=== PATIENT | male | born 1940 | race Caucasian/White ===

== ENCOUNTER 2019-10-30 07:21 | Outpatient (CLI) | payer MEDICARE ==
--- NOTE | 2019-10-30 09:27 | PET ---
EXAM: PET/CT HISTORY: Solitary pulmonary nodule TECHNIQUE: PET scanning with CT attenuation correction was performed from the base of the brain to the proximal thighs following the intravenous administration of 10.6 millicuries [id number]. COMPARISON: None. CORRELATION: CT pulmonary angiogram of 10/25/2019 FINDINGS: There is a 1.6 cm hypermetabolic solid pulmonary nodule in the superior segment of the right lower lo be with an SUV of 4.0 No onesimo hypermetabolism is seen in the neck, mediastinum, hilar regions, axillary, abdomen or pelvis . No hypermetabolic liver, adrenal or skeletal lesions are seen. There is physiologic activity in the GI and tracts and the visualized portions of the brain. The CT scan used for attenuation correction demonstrates no evidence of pleural effusions or ascites. There is bilateral polycystic kidney disease and cholelithiasis. IMPRESSION: Findings a suspicious for right lung malignancy without evidence of metastatic disease
== END 2019-10-30 07:22 | disposition home or self-care (01) ==
LOC: PET 07:21
PROVIDERS: ATTEND Internal Medicine Pulmonary Disease
DX: R91.1 Solitary pulmonary nodule (principal)
CPT/HCPCS: 78815; A9552

== ENCOUNTER 2019-11-11 15:10 | Outpatient (CLI) | payer MEDICARE ==
[2019-11-11 17:49] LABS: #Basophils 0.1 thou/uL (0.0-0.2); #Eosinphils 0.3 thou/uL (0.0-0.7); #Lymphocytes 1.4 thou/uL (1.20-3.40); #Monocytes 0.4 thou/uL (0.11-0.59); #Neutrophils 3.2 thou/uL (1.40-6.50); %Basophils 1.2 % (0.0-1.0); %Lymphocytes 25.9 % (21.0-51.0); %Monocytes 7.8 % (0.0-10.0); %Neutrophils 60.2 % (42.0-75.0); Mean Corpuscular HGB CONC 33.9 g/dL (32.0-36.0); Mean Corpuscular Hemoglobin 31.1 pg (27.0-31.0); Mean Corpuscular Volume 91.8 fL (78.0-98.0); Mean Platelet Volume 7.5 fL (7.4-10.4); Platelet Count 206 thou/uL (130-400); RBC Distribution Width 13.8 % (11.5-14.5); Red Blood Cell (RBC) Count 4.19 mill/uL (4.70-6.10); White Blood Cell (WBC) Count 5.3 thou/uL (4.8-10.8)
[2019-11-11 17:58] LABS: Anion Gap 13 mmol/L (10-20); BUN (Urea Nitrogen) 21 mg/dL (8.4-25.7); Calc. Creatinine Clearance 0 mL/min (70-130); Calcium 8.9 mg/dL (7.8-10.44); Carbon Dioxide 27 mmol/L (23-31); Chloride 104 mmol/L (98-107); Estimated GFR-MDRD 36; Glucose 121 mg/dL (83-110); Potassium 4.7 mmol/L (3.5-5.1); Sodium 139 mmol/L (136-145)
[2019-11-12 11:56] LABS: SARS-CoV-2 MS2 Positive; SARS-CoV-2 N Gene Negative; SARS-CoV-2 S Gene Negative; SARS-CoV-2 by NAA Not Detected (NotDetected); SARS-CoV-2 orf1ab Negative
== END 2019-11-11 15:11 | disposition home or self-care (01) ==
LOC: LABBT 15:10
PROVIDERS: ATTEND Thoracic Surgery (Cardiothoracic Vascular Surgery)
DX: Z01.812 Encounter for preprocedural laboratory examination (principal); Z20.828 Contact with and (suspected) exposure to other viral communicable diseases; R91.8 Other nonspecific abnormal finding of lung field
CPT/HCPCS: 80048; 85025; 86850; 86900; 86901; U0003; 87635

== ENCOUNTER 2019-11-11 15:30 | Inpatient (IN) | payer MEDICARE, OTHER ==
[2019-11-16] MEDS ORDERED: Fentanyl 100 MCG/2 ML VIAL ONE ×2 (06:34→10:52)
[2019-11-16] MEDS ORDERED: Midazolam HCl 2 mg/2 ml Vial ONE (06:34)
[2019-11-16] MEDS ORDERED: Hydrocerin (Eucerin) Cream 120 gm Jar TOP PRN (08:00)
[2019-11-16] MEDS ORDERED: Promethazine HCl 25 MG SUPP PR PRN (08:00)
[2019-11-16] MEDS ORDERED: diphenhydrAMINE 50 MG/ML VIAL IVP PRN (08:00)
[2019-11-16] MEDS ORDERED: Zolpidem Tartrate 5 MG TAB PO PRN (08:00)
[2019-11-16] MEDS ORDERED: traMADol HCl 50 MG TAB PO PRN ×2 (08:00)
[2019-11-16] MEDS ORDERED: Bupivacaine 0.25% 10 ML VIAL EPIDURAL PRN (08:00)
[2019-11-16] MEDS ORDERED: Promethazine HCl 25 MG/ML VIAL IM PRN ×2 (08:00→10:54)
[2019-11-16] MEDS ORDERED: Naloxone HCl 0.4 mg/ml Vial IV PRN (08:00)
[2019-11-16] MEDS ORDERED: diphenhydrAMINE 50 MG/ML VIAL IM PRN (08:00)
[2019-11-16] MEDS ORDERED: HYDROcodone/Acetaminophen 5/325 mg Tablet PO PRN (08:00)
[2019-11-16] MEDS ORDERED: Naloxone HCl 0.4 mg/ml Vial IVP PRN (08:00)
[2019-11-16] MEDS ORDERED: Ondansetron HCl/PF 4 MG/2 ML Vial IVP PRN (10:20)
[2019-11-16] MEDS ORDERED: PHENYLEPHRINE-NS 100 MCG/ML 10 ML SYRINGE ONE (10:41)
[2019-11-16] MEDS ORDERED: PROPOFOL 200 MG/20 ML VIAL ONE (10:41)
[2019-11-16] MEDS ORDERED: Rocuronium Bromide 10 MG/ML (10ML VIAL) ONE (10:41)
[2019-11-16] MEDS ORDERED: Lidocaine 1% PF 5 ML VIAL ONE (10:41)
[2019-11-16] MEDS ORDERED: Ketorolac Tromethamine 30 MG/ML VIAL ONE (10:41)
[2019-11-16] MEDS ORDERED: EPHEDRINE 25 MG/5 ML SYRINGE ONE (10:41)
[2019-11-16] MEDS ORDERED: Ondansetron PF 4 MG/2 ML Vial ONE (10:41)
[2019-11-16] MEDS ORDERED: Dexamethasone 20 MG/5 ML VIAL ONE (10:41)
[2019-11-16] MEDS ORDERED: Glycopyrrolate 0.2 MG/ML 5 ML SYRINGE ONE ×2 (10:41)
[2019-11-16] MEDS ORDERED: Fentanyl 100 MCG/2 ML VIAL SLOW IVP PRN ×3 (10:54→12:57)
[2019-11-16] MEDS ORDERED: Phenylephrine 10 MG/NS 250 ML 250 ML IVPB PRN (10:54)
--- NOTE | 2019-11-16 12:33 | RAD ---
PORTABLE CHEST: Date: 11/16/2019 INDICATION: Post thoracotomy. FINDINGS: There is a right chest tube. There is streaky atelectasis or infiltrate in the right lower lobe. No d efinite lung markings are seen in the periphery of the right lung and a small pneumothorax cannot be excluded, although a pleural line is not definitely identified. The left lung appears clear. IMPRESSION: Right chest tube with tip overlying the right apex. Streaky atelectasis and/or infiltrate in the righ t lower lung. Tiny pneumothorax may be present, but a pleural line is not confirmed. POS: AGW
[2019-11-16] MEDS: Sodium Chloride 0.9% 1,000 ML IV SCH (15:48)
[2019-11-16] MEDS: CEFAZOLIN 2 GM in Premix Bag 1 BAG IVPB SCH ×2 (15:49→22:17)
--- NOTE | 2019-11-16 18:03 | EKG ---
Test Reason : PREOP Blood Pressure : / mmHG Vent. Rate : 068 BPM Atrial Rate : 068 BPM P-R Int : 212 ms QRS Dur : 096 ms QT Int : 430 ms P-R-T Axes : 065 -03 051 degrees QTc Int : 457 ms Sinus rhythm with 1st degree A-V block Otherwise normal ECG No previous ECGs available Confirmed by DR. Liza CÁRDENAS (3) on 11/16/2019 6:03:11 PM Referred By: MAULIK Confirmed By:DR. Liza CÁRDENAS
[2019-11-16] MEDS: diphenhydrAMINE 25 MG CAP PO PRN ×2 (18:50→22:16)
[2019-11-16] MEDS ORDERED: Bromfenac Sodium [Prolensa] 3 ML Drops TOP SCH (21:00)
[2019-11-16] MEDS: fentaNYL Citrate/PF 500 MCG, Bupivacaine 10 ML in Sodium Chloride 0.9% 80 ML EPIDURAL SCH (22:53)
[2019-11-17 04:05] LABS: #Lymphocytes 0.7 thou/uL (1.20-3.40); #Monocytes 0.6 thou/uL (0.11-0.59); #Neutrophils 7.1 thou/uL (1.40-6.50); %Basophils 0.2 % (0.0-1.0); %Eosinophils 0.1 % (0.0-10.0); %Lymphocytes 8.2 % (21.0-51.0); %Monocytes 7.3 % (0.0-10.0); %Neutrophils 84.3 % (42.0-75.0); Hemoglobin 11.2 g/dL (14.0-18.0); Mean Corpuscular HGB CONC 32.5 g/dL (32.0-36.0); Mean Corpuscular Hemoglobin 30.1 pg (27.0-31.0); Mean Corpuscular Volume 92.6 fL (78.0-98.0); Mean Platelet Volume 7.3 fL (7.4-10.4); Platelet Count 196 thou/uL (130-400); RBC Distribution Width 13.7 % (11.5-14.5); Red Blood Cell (RBC) Count 3.71 mill/uL (4.70-6.10); White Blood Cell (WBC) Count 8.5 thou/uL (4.8-10.8)
[2019-11-17 04:27] LABS: Anion Gap 13 mmol/L (10-20); BUN (Urea Nitrogen) 28 mg/dL (8.4-25.7); Calc. Creatinine Clearance 38 mL/min (70-130); Calcium 8.5 mg/dL (7.8-10.44); Carbon Dioxide 23 mmol/L (23-31); Chloride 105 mmol/L (98-107); Estimated GFR-MDRD 37; Glucose 121 mg/dL (83-110); Potassium 5.2 mmol/L (3.5-5.1); Sodium 136 mmol/L (136-145)
--- NOTE | 2019-11-17 05:15 | OP ---
DATE OF PROCEDURE: 11/16/2019 PREOPERATIVE DIAGNOSIS: Superior segment, right lower lobe mass. POSTOPERATIVE DIAGNOSIS: Superior segment, right lower lobe mass, frozen section malignancy. DESCRIPTION OF PROCEDURE: After prepping and draping in the left lateral decubitus position, the right posterior lateral muscle sparing thoracotomy was carried out. The chest was entered, and during rib spreading, a single rib fracture occurred posteriorly. The nodule was palpated and excised and frozen section returned malignancy. Based on the fact that it was not a carcinoid, even though margins were widely clear, I felt that the segmentectomy would be the best approach. The major fissure was taken down between staple loads isolating the bronchus to the superior segment after stapling the superior segment pulmonary artery. The bronchus was then stapled, and following this with inflation of the lung, the margins of the superior segment were stapled and excised. There was no air leak from the bronchus and two drains were then placed in the chest, following which, the ribs were reapproximated with iyvgfu-hy-kilea catgut sutures. Muscle layers were loosely reapproximated, and the subcutaneous tissue and skin was closed in layers. Job ID: [id number]
--- NOTE | 2019-11-17 05:47 | PRG ---
DATE OF SERVICE: 11/16/2019 SUBJECTIVE: Postop right lung segmentectomy for PET positive lung nodule. Pathology pending. OBJECTIVE: VITAL SIGNS: Pulse 53, blood pressure 100/42, saturations , respiratory rate 18. GENERAL: He denies any pain or shortness of breath. CHEST: No wheezing. No crackles. CARDIAC: Normal S1 and S2. No gallops. ABDOMEN: No masses. ASSESSMENT: Former smoker, chronic obstructive pulmonary disease, right lung nodule, status post segmentectomy. PLAN: We will continue pain relief, supportive care. Await final path. Job ID: [id number]
--- NOTE | 2019-11-17 07:01 | PDOC.GSPN ---
Surgery Progress Note: Subj - Subjective Patient reports: no new complaints Narrative: Mr. Campos is a 79 y/o male POD 1 from right thoracotomy for right lower lung resection/tumor removal. He is doing well this morning with pain well controlled and no complaints. He is was able to tolerate diet and water. Denies chest pain, shortness of breath, nausea, fevers, or chills. He is sitting comfortably in his bed and was able to use spirometer at bedside to approximately 1500ml. Epidural still in place. UOP: 328 Chest tubes: 450 at bedside IVF: NS @ 50 ml/hr Surgery Progress Note: Obj - Vital signs Vital signs: Vital Signs - Most Recent Temp Pulse Resp BP Pulse Ox 98.0 F 96 11/17/19 04:00 11/16/19 20:00 - Physical Exam General: no distress ENT: normal mucosa Cardiovascular: regular rate and rhythm, no murmur Respiratory: clear to auscultation (Auscultated a few sparce rales on right side.), normal respiratory effort, breath sounds present Abdomen: soft, non tender Psychiatric: oriented to time, oriented to person, oriented to place Wound: dressing clean,dry,intact (No gross bloody or purulent drainage. Thoracotomy incision and chest tube incisions (2) covered with gauze and tape.) Surgery Progress Note: Results - Labs Result Diagrams: 11/17/19 03:35 11/17/19 03:35 Lab results: Laboratory Results - last 12 hr 11/17/19 11/17/19 03:35 03:35 WBC 8.5 RBC 3.71 L Hgb 11.2 L Hct 34.3 L MCV 92.6 MCH 30.1 MCHC 32.5 RDW 13.7 Plt Count 196 MPV 7.3 L Neutrophils % 84.3 H Lymphocytes % 8.2 L Monocytes % 7.3 Eosinophils % 0.1 Basophils % 0.2 Neutrophils # 7.1 H Lymphocytes # 0.7 L Monocytes # 0.6 H Eosinophils # 0.0 Basophils # 0.0 Sodium 136 Potassium 5.2 H Chloride 105 Carbon Dioxide 23 Anion Gap 13 BUN 28 H Creatinine 1.78 H Estimated GFR (MDRD) 37 Glucose 121 H Calcium 8.5 Surgery Progress Note: A/P - Plan Plan: Mr. Campos is a 79 y/o male POD 1 from right thoracotomy for right lower lung resection/tumor removal who is doing well. -Encourage sitting in chair and ambulation as tolerated -Monitor pain -Monitor UOP closely. Keep mendez in for now -Will discuss chest tube removal with Dr. Duarte
[2019-11-17] MEDS: Aspirin 81 mg Enteric Coated Tablet PO SCH (07:55)
[2019-11-17] MEDS: CEFAZOLIN 2 GM in Premix Bag 1 BAG IVPB SCH (07:55)
[2019-11-17] MEDS: Atorvastatin Calcium 10 MG TAB PO SCH (07:55)
--- NOTE | 2019-11-17 08:09 | PRG ---
DATE OF SERVICE: 11/17/2019 The patient has been afebrile overnight. He has stable vital signs. Blood pressure , heart rates generally 60s, although occasionally will drop into the high 30s. He reports no pain and has had a good appetite. He did not sleep much last night, but states his snoring woke him up. Laboratory values; his hemoglobin is 11.2, his creatinine is stable at 1.78, and his potassium slightly elevated at 5.2. Chest tube is at 450 to 500 and he has no air leak. His chest x-ray looks good. His lungs are clear. His abdomen is soft. Plan to transfer the patient to the floor today, probably leave his Nguyễn in one additional day and we will start him on some Flomax since he does have nocturia times 2 to 3 at home, although he denies any urinary difficulties. Job ID: [id number]
--- NOTE | 2019-11-17 08:42 | RAD ---
PORTABLE CHEST: HISTORY: Postop thoracotomy. COMPARISON: 11/16/2019. FINDINGS: There are 2 right-side chest tubes. Probable tiny apical pneumothorax on the right. The mild linear atelectasis in the right mid lung remains. Left lung remains clear. No significant interval change . POS: AGW
[2019-11-17] MEDS ORDERED: Enoxaparin Sodium 40 MG/0.4 ML SYRINGE SC SCH (09:00)
[2019-11-17] MEDS: Sodium Chloride 0.9% 1,000 ML IV SCH (10:14)
[2019-11-17] MEDS: fentaNYL Citrate/PF 500 MCG, Bupivacaine 10 ML in Sodium Chloride 0.9% 80 ML EPIDURAL SCH ×2 (10:24→22:43)
[2019-11-17] MEDS ORDERED: Tamsulosin HCl 0.4 MG CAP PO SCH (11:00)
[2019-11-17 13:23] VITALS: BMI 23.5
[2019-11-17] MEDS: HYDROcodone/Acetaminophen 5/325 mg Tablet PO PRN ×2 (17:47→23:12)
--- NOTE | 2019-11-18 06:41 | PRG ---
DATE OF SERVICE: 11/18/2019 The patient is afebrile. Vital signs are stable. His chest tube is at 1050 suggesting about 500 mL of fluid in the past 24 hours. He has no air leak and I have stopped the suction on his chest tubes. His lungs are clear and he has no complaints in regard to pain. He did have his Nguyễn catheter removed yesterday with a 700 mL residual prior to reinsertion as the patient was unable to void. Pathology is still pending. Plan at this time is to Hep-Lock IV fluids and get Physical Therapy to help the patient with ambulation. Job ID: [id number]
--- NOTE | 2019-11-18 08:03 | RAD ---
RADIOGRAPH CHEST 1 VIEW: DATE: 11/18/2019 TIME: 4:43 AM HISTORY: Follow-up pneumothorax in 79-year-old male COMPARISON: 11/17/2019 4:13 AM FINDINGS: Tiny short linear border at right apex is again noted. Uncertain whether this represents a tiny pneum othorax. 2 right-sided chest tubes remain. Subsegmental atelectasis at right lung base. Mild subsegmental atelectasis at left lower lobe base. No cardiomegaly or pulmonary edema. No interval moi nge overall. Thin wires looped over the right supraclavicular region. Subcutaneous emphysema in the right neck. IMPRESSION: Questionable tiny right apical pneumothorax. No major interval change.
[2019-11-18] MEDS: Atorvastatin Calcium 10 MG TAB PO SCH (09:59)
[2019-11-18] MEDS: Tamsulosin HCl 0.4 MG CAP PO SCH (09:59)
[2019-11-18] MEDS: Aspirin 81 mg Enteric Coated Tablet PO SCH (09:59)
--- NOTE | 2019-11-18 10:04 | PRG ---
DATE OF SERVICE: 11/18/2019 SUBJECTIVE: Faizan Campos is an 79-year-old gentleman. This morning, he said he is feeling better, less pain. OBJECTIVE: VITAL SIGNS: Temperature 98, pulse 80, respiratory rate 16, sats 92% on room air, blood pressure 106/64. CHEST: No wheezing. No crackles. CARDIAC: Normal S1, S2. No gallops. ABDOMEN: No masses. IMPRESSION: Status post right lung thoracotomy, wedge resection, still awaiting final path. Preliminary report showed there was neoplastic involvement. His x-ray shows atelectatic changes, but otherwise no infiltrates. Continue comfort care, PT, supportive care. We will follow. Job ID: [id number]
[2019-11-18] MEDS: fentaNYL Citrate/PF 500 MCG, Bupivacaine 10 ML in Sodium Chloride 0.9% 80 ML EPIDURAL SCH (12:58)
[2019-11-18] MEDS ORDERED: Polyethylene Glycol 3350 17 GM Packet PO PRN (17:42)
[2019-11-18] MEDS ORDERED: Bisacodyl 10 MG SUPP PR PRN (17:43)
[2019-11-18] MEDS ORDERED: Bisacodyl 5 MG TAB PO PRN (17:43)
[2019-11-18] MEDS: Enoxaparin Sodium 40 MG/0.4 ML SYRINGE SC SCH (20:07)
[2019-11-19] MEDS: fentaNYL Citrate/PF 500 MCG, Bupivacaine 10 ML in Sodium Chloride 0.9% 80 ML EPIDURAL SCH ×2 (00:14→13:19)
--- NOTE | 2019-11-19 07:45 | RAD ---
CHEST 1 VIEW: INDICATION: Thoracotomy. COMPARISON: Prior exam dated 11/18/2019. FINDINGS: Airspace disease of the right lung base persists. Right-sided thoracostomy tubes are unchanged. Tin y right apical pneumothorax persists. Left lung is clear. Heart size is mildly prominent but stable . Osseous structures unchanged. IMPRESSION: Stable right apical pneumothorax. POS: BH
[2019-11-19] MEDS: Aspirin 81 mg Enteric Coated Tablet PO SCH (08:46)
[2019-11-19] MEDS: Polyethylene Glycol 3350 17 GM Packet PO SCH (08:46)
[2019-11-19] MEDS: Atorvastatin Calcium 10 MG TAB PO SCH (08:46)
[2019-11-19] MEDS: Tamsulosin HCl 0.4 MG CAP PO SCH (08:47)
[2019-11-19] MEDS: Ondansetron PF 4 MG/2 ML Vial IVP PRN ×2 (08:48→18:34)
--- NOTE | 2019-11-19 10:03 | PRG ---
DATE OF SERVICE: 11/19/2019 SUBJECTIVE: Faizan Campos this morning, he is nauseated, still having pain, still short of breath. OBJECTIVE: VITAL SIGNS: Temperature 96, pulse 102, respirations 14, saturations are 93% on room air, blood pressure 120/76. CHEST: Decreased breath sounds. No wheezing. CARDIAC: Normal S1 and S2. No gallops. ABDOMEN: No masses. LABORATORY DATA: His x-ray shows left lung atelectatic changes. No pneumothorax. Chest tube is draining. His final path shows malignant melanoma of superior segment left lower lobe. ASSESSMENT: 1. Malignant melanoma. 2. Chronic obstructive pulmonary disease. PLAN: As per family's wishes, we will try and get Oncology to see the patient. Otherwise, continue supportive care, PT. We will follow. Job ID: [id number]
--- NOTE | 2019-11-19 12:17 | PRG ---
DATE OF SERVICE: 11/19/2019 SUBJECTIVE: The patient is afebrile. Blood pressure is satisfactory. Heart rate is about 90-100. He has no new laboratory values. His chest x-ray continues to look good. He does have a slight nonproductive cough. He has generally felt poorly the last 12 hours or so. Evidently, his epidural catheter ran out and subsequently his pain has been a little more difficult to control than prior to this when he had essentially no pain. He also complains of stomach is full like he needs to have a bowel movement. He is passing flatus and he is not nauseated, but does complain of some heartburn. Chest tube has about 1350 mL of fluids about 350 in the last 24 hours and he continues to have no air leak. We will try some laxatives, cathartics today to see if we can improve his GI symptoms. If his chest tube output decreases, we will plan on removing these tubes tomorrow. Pathology did return yesterday as melanoma and I discussed this with he and his yesterday evening. Job ID: [id number]
[2019-11-19] MEDS ORDERED: Fleet Enema 133 ML BOT FS PRN (16:04)
[2019-11-19] MEDS ORDERED: Magnesium Citrate 300 ML BOT PO SCH (17:15)
--- NOTE | 2019-11-19 20:01 | CON ---
DATE OF CONSULTATION: REASON FOR CONSULTATION: Malignant melanoma. HISTORY OF PRESENT ILLNESS: Mr. Campos is a pleasant 79-year-old gentleman with past medical history of cutaneous melanoma in situ. He had excision of scalp lesions in 2009 and 2011. He has been seen by Dr. Collier in the past, last was in 2011. He was noted to have a lung mass and underwent a PET scan in mid October showed a 1.6 cm hypermetabolic solitary pulmonary nodule in the superior segment of the right lower lobe with an SUV of 4.0. No other abnormalities were noted. He underwent a right thoracotomy with right lower lobe tumor resection. All path returned malignant melanoma. All margins were negative for malignancy. The patient is resting comfortably at bedside. He has a chest tube in place. He has no complaints except for constipation. PAST MEDICAL HISTORY: 1. Hypertension. 2. COPD. 3. History of basal-cell skin cancer. 4. History of squamous-cell skin cancer. 5. History of 2 melanoma in situ scalp lesions, status post excision biopsy. PAST SURGICAL HISTORY: 1. Cystectomy. 2. Appendectomy. 3. Bone spur removal. ALLERGIES: SULFA. HOME MEDICATIONS: 1. Atorvastatin. 2. Formoterol. 3. Aspirin. 4. Lisinopril. 5. Prolensa. 6. Vitamin D. FAMILY HISTORY: Mother had multiple myeloma. Father had prostate cancer. SOCIAL HISTORY: , 4 children. Lives with his spouse. He is a former smoker. No alcohol or illicit drug use. REVIEW OF SYSTEMS: A 10-point review of systems is negative except for noted in HPI. PHYSICAL EXAMINATION: VITAL SIGNS: Temperature is 97.8, pulse is 101, respiratory rate is 16, BP is 129/77. He is 93% on room air. GENERAL: This is a well-developed, well-nourished male, in no acute distress. HEENT: Normocephalic, atraumatic. Pupils are equal and reactive to light. CV: Regular rate and rhythm. LUNGS: Clear. He has chest tube in his right anterior chest. ABDOMEN: Soft, nontender. Bowel sounds are positive. EXTREMITIES: No clubbing or cyanosis. NEUROLOGIC: Nonfocal. PERTINENT LABORATORY DATA AND X-RAYS: Current WBCs are 8.5, hemoglobin 11.2, hematocrit 34.3, platelet count 196,000, 84% neutrophils, 8% lymphs. Sodium 136, potassium 5.2, chloride 105, CO2 is 23, BUN is 28, creatinine 1.78, calcium 8.5. COVID negative. ASSESSMENT: Malignant melanoma, lung nodule, status post resection with negative borders. DISCUSSION: BRAF mutation will be checked on the patient's melanoma. He will follow up with Dr. Collier in the office next week to discuss any treatment options. Clinic information and appointment time were given to the spouse. All questions were answered. Thank you for the consult. Job ID: [id number]
[2019-11-19] MEDS: Enoxaparin Sodium 40 MG/0.4 ML SYRINGE SC SCH (20:15)
[2019-11-20] MEDS: fentaNYL Citrate/PF 500 MCG, Bupivacaine 10 ML in Sodium Chloride 0.9% 80 ML EPIDURAL SCH (01:23)
[2019-11-20] MEDS: Aspirin 81 mg Enteric Coated Tablet PO SCH (08:29)
[2019-11-20] MEDS: Tamsulosin HCl 0.4 MG CAP PO SCH (08:30)
[2019-11-20] MEDS: Atorvastatin Calcium 10 MG TAB PO SCH (08:30)
[2019-11-20] MEDS: Polyethylene Glycol 3350 17 GM Packet PO SCH (08:30)
--- NOTE | 2019-11-20 08:35 | PRG ---
DATE OF SERVICE: 11/20/2019 The patient's chest tube output has decreased being less than 80 mL in the last 12 hours. He has no air leak and his chest x-ray looks adequate for tube removal. He continues to have GI complaints and did have a small bowel movement yesterday in his abdomen is less uncomfortable by his account today. He was given some Mag citrate last night which he vomited. His lungs are clear. His abdomen is full, but softer today and nontender with bowel sounds. We will discontinue his chest tubes, check a KUB and possibly have his epidural removed later today. We will leave his Nguyễn in today and then try removal tomorrow after he had significant urinary retention with a prior attempted removal with a 700 mL residual. Job ID: [id number]
--- NOTE | 2019-11-20 10:19 | RAD ---
PORTABLE CHEST: Date: 11/20/2019 HISTORY: Post thoracotomy. COMPARISON: Prior day's exam. FINDINGS: Right-sided chest tubes remain in place. Parenchymal changes in the right lung are stable. Left lung is clear. IMPRESSION: Stable exam. There appears to be a tiny apical pneumothorax present, also unchanged. POS: DELL
--- NOTE | 2019-11-20 12:11 | PRG ---
DATE OF SERVICE: 11/20/2019 The patient has some vomiting last night. He had small stool and some gas yesterday and a KUB today revealed some air-fluid levels and a loop of small bowel that appears dilated. His colon does have a large amount of stool. Since the patient has had enemas as well as oral agents for several days, we will ask GI input as to whether anything further can be done to evaluate or treat his GI distress. Job ID: [id number]
--- NOTE | 2019-11-20 12:13 | RAD ---
KUB AND UPRIGHT: HISTORY: Abdominal distention post thoracotomy. FINDINGS: There are dilated mid abdominal small bowel loops. There is also air within the colon. The right he midiaphragm is not entirely included on this upright film to evaluate for free air, although an uprig ht chest shows no free air. IMPRESSION: Findings compatible with small bowel obstruction with dilated mid abdominal small bowel loops. POS: DELL
--- NOTE | 2019-11-20 12:19 | PRG ---
DATE OF SERVICE: 11/20/2019 SUBJECTIVE: He is complaining of constipation this morning, it is probably related to his pain medicine, but less shortness of breath, less pleuritic chest pain. He had a KUB, it did show a significant amount of ileus in the small bowel. OBJECTIVE: VITAL SIGNS: Otherwise, his vital signs are stable. Temperature 97, pulse 92, respiratory rate 18, saturations are 95% on room air, blood pressure 99/61. CHEST: No wheezing. No crackles. CARDIAC: Normal S1 and S2. No gallop. ABDOMEN: Soft. ASSESSMENT: Constipation postop, right lung melanoma status post segmentectomy, chronic obstructive pulmonary disease. PLAN: The patient was encouraged to ambulate. Continue supportive care. We will follow. Job ID: [id number]
--- NOTE | 2019-11-20 13:40 | PDOC.MOPN ---
Interval History: up in chair, breathing ok. pain controlled - Vital Signs Vital Signs: Vital Signs (12 hours) Temp Pulse Resp BP Pulse Ox 11/20/19 11:46 98 F 92 18 112/71 92 L 11/20/19 08:00 94 L 11/20/19 07:25 97.6 F 92 18 99/61 94 L 11/20/19 03:14 98.7 F 98 18 119/74 94 L Weight Admit Weight 182 lb Weight 182 lb 15.739 oz Most Recent Monitor Data Heart Rate from ECG 77 NIBP 127/72 NIBP BP-Mean 90 Respiration from ECG 18 SpO2 96 - Physical Exam General: Alert, Oriented x3, No acute distress HEENT: Atraumatic, PERRLA, EOMI, Mucous membr. moist/pink Lungs: Other Cardiovascular: Regular rate Abdomen: Normal bowel sounds Extremities: No clubbing, No cyanosis, No edema, Normal pulses, No tendernes s/swelling Neurological: Normal gait, Normal speech, Strength at 5/5 X4 ext, Normal tone, Sensation intact, Cranial nerves 3-12 NL, Reflexes 2+ - Labs Result Diagrams: 11/17/19 03:35 11/17/19 03:35 Status: lab reviewed by me A/P - Problem (1) Malignant melanoma Current Visit: Yes Code(s): C43.9 - MALIGNANT MELANOMA OF SKIN, UNSPECIFIED Status: Acute - Plan Plan: 1. improving s/p resection. CT out 2. need MRI brain to complete staging 3. Follow-up outpatient to discuss treatment.
--- NOTE | 2019-11-20 15:13 | MRI ---
MRI brain with and without contrast: DATE: 11/20/2019 HISTORY: 79-year-old male with melanoma. Staging. TECHNIQUE: Multiplanar, multisequence MRI of the brain obtained pre and post IV injection of gadolinium based co ntrast agent. FINDINGS: All images are degraded by patient motion. There is no obstructive hydrocephalus. There is no midline shift or any other evidence of mass effect. There is no extra-axial fluid collection. There are mild chronic ischemic white matter changes due to microvascular atherosclerosis. There is otherwise n o major intra-axial signal abnormality, abnormal enhancement, mass, recent hemorrhage, or restricted diffusion. IMPRESSION: 1) mild chronic ischemic white matter changes. 2) otherwise negative. No evidence of brain metastasis.
[2019-11-20] MEDS: Enoxaparin Sodium 40 MG/0.4 ML SYRINGE SC SCH (20:31)
[2019-11-21 06:49] LABS: #Eosinphils 0.2 thou/uL (0.0-0.7); #Lymphocytes 0.6 thou/uL (1.20-3.40); #Monocytes 0.7 thou/uL (0.11-0.59); %Basophils 0.3 % (0.0-1.0); %Lymphocytes 7.6 % (21.0-51.0); %Monocytes 7.6 % (0.0-10.0); %Neutrophils 82.4 % (42.0-75.0); Hemoglobin 9.7 g/dL (14.0-18.0); Mean Corpuscular HGB CONC 33.7 g/dL (32.0-36.0); Mean Corpuscular Hemoglobin 30.9 pg (27.0-31.0); Mean Corpuscular Volume 91.7 fL (78.0-98.0); Platelet Count 214 thou/uL (130-400); RBC Distribution Width 13.6 % (11.5-14.5); Red Blood Cell (RBC) Count 3.12 mill/uL (4.70-6.10); White Blood Cell (WBC) Count 8.5 thou/uL (4.8-10.8)
[2019-11-21 07:07] LABS: Anion Gap 14 mmol/L (10-20); BUN (Urea Nitrogen) 20 mg/dL (8.4-25.7); Calc. Creatinine Clearance 55 mL/min (70-130); Calcium 8.6 mg/dL (7.8-10.44); Carbon Dioxide 25 mmol/L (23-31); Chloride 98 mmol/L (98-107); Estimated GFR-MDRD 56; Glucose 98 mg/dL (83-110); Potassium 4.4 mmol/L (3.5-5.1); Sodium 133 mmol/L (136-145)
[2019-11-21] MEDS: Tamsulosin HCl 0.4 MG CAP PO SCH (08:11)
[2019-11-21] MEDS: Aspirin 81 mg Enteric Coated Tablet PO SCH (08:11)
[2019-11-21] MEDS: Atorvastatin Calcium 10 MG TAB PO SCH (08:11)
[2019-11-21] MEDS: Polyethylene Glycol 3350 17 GM Packet PO SCH (08:11)
[2019-11-21] MEDS ORDERED: MD-Gastroview 120 ML BOT ONE (09:22)
--- NOTE | 2019-11-21 09:54 | CON ---
DATE OF CONSULTATION: 11/21/2019 CHIEF COMPLAINT: Question of small-bowel obstruction. HISTORY OF PRESENT ILLNESS: This is an 79-year-old male, admitted, had thoracotomy and partial lung resection for metastatic melanoma. Last night, he had MRI of brain that was within normal limits. Now, presents with a progressive abdominal distention. His plain films show a significant amount of retained stool in the colon, but some dilated small intestine. The patient notes that he was admitted to the [facility] last year with similar symptoms that resolved with Gastrografin small-bowel follow-through. Denies history of abdominal operation. He has been told he had Crohn's on a previous colonoscopy, but never had any treatment for. He denies history of chronic abdominal pain, blood in stool, diarrhea. His symptoms now, he notes bloating that is discomfort, but not pain. He has mild nausea, has not vomited overnight. PAST MEDICAL HISTORY: Hypertension, COPD, melanoma, squamous cell, and basal cell. PAST SURGICAL HISTORY: Appendectomy. ALLERGIES: SULFA. MEDICATIONS: See list. SOCIAL: No smoking or alcohol or other drugs. PHYSICAL EXAMINATION: HEENT: His sclerae anicteric. Oropharynx clear. NECK: No lymphadenopathy. CHEST: Clear. HEART: Regular rate. ABDOMEN: His abdomen is soft, distended, diffuse mildly tender. He does have bowel sounds. No abdominal hernias. EXTREMITIES: No ischemia or edema to extremities. DIAGNOSTIC DATA: X-ray shows dilated small intestine, but also a lot of significant residual stool in the right and left colon. ASSESSMENT: 1. Malignant melanoma, status post resection. 2. Question of partial small-bowel obstruction versus ileus. PLAN: Gastrografin small-bowel follow-through today. We will let him try to drink this on his own. Job ID: [id number]
--- NOTE | 2019-11-21 11:38 | PRG ---
DATE OF SERVICE: 11/21/2019 SUBJECTIVE: This morning, he had a bowel movement. He was given some laxative by mouth. OBJECTIVE: VITAL SIGNS: Temperature 97, pulse 89, respiratory rate 18, saturations 92% on room air, blood pressure 132/72. GENERAL: He is weak, but denies any difficulty breathing. CHEST: No wheezing, no crackles. CARDIAC: Normal S1, S2. No gallop. ABDOMEN: No masses. ASSESSMENT: 1. Post right lung segmentectomy, melanoma. 2. Postop ileus, better condition. PLAN: Continue supportive care, PT. Hopefully, once his bowel habits are improved, we will discharge home. Pulmonary is following. Job ID: [id number]
[2019-11-21] MEDS: Ondansetron PF 4 MG/2 ML Vial IVP PRN (11:59)
--- NOTE | 2019-11-21 12:56 | RAD ---
Radiograph abdomen 2 views: 11/21/2019 12:35 PM HISTORY: 79-year-old male with abdominal distention COMPARISON: 11/20/2019 FINDINGS: There continues to be air-filled dilated small bowel loops in the central portion of the abdomen. Now , there is a greater amount of gas in less dilated small bowel loops in the left lateral abdomen. There is probably also some gas in nondistended descending colon. No pneumoperitoneum. No gaseous gas tric distention. No NG tube. Again noted is the collection of innumerable 1 mm round calcifications into a 10 x 25 mm rectangular collection, in the left upper quadrant of the abdominal cavity. Attenuation correction noncontrast CT of 10/30/2019 localizes this to the left kidney. IMPRESSION: 1. Abnormal bowel gas pattern. This may represent partial small bowel obstruction, with perhaps minim al improvement since yesterday. 2. Unusual finding of a collection of innumerable tiny 1 mm calcifications within a collection, perha ps within a cyst or calyx, in the left kidney. Etiology is uncertain.
--- NOTE | 2019-11-21 14:01 | RAD ---
Small bowel follow-through HISTORY: Abdominal pain. Obstruction. FINDINGS: Gastrografin contrast was administered. There are mildly distended gas and contrast-filled loops of small bowel throughout the abdomen. Contrast reached the right colon at 30 minutes. IMPRESSION : No evidence of obstruction. Rapid small bowel transit.
[2019-11-21] MEDS: Enoxaparin Sodium 40 MG/0.4 ML SYRINGE SC SCH (20:48)
[2019-11-22] MEDS: Atorvastatin Calcium 10 MG TAB PO SCH (08:21)
[2019-11-22] MEDS: Tamsulosin HCl 0.4 MG CAP PO SCH (08:21)
[2019-11-22] MEDS: Aspirin 81 mg Enteric Coated Tablet PO SCH (08:21)
[2019-11-22] MEDS: Polyethylene Glycol 3350 17 GM Packet PO SCH (08:22)
--- NOTE | 2019-11-22 09:19 | PRG ---
DATE OF SERVICE: 11/22/2019 SUBJECTIVE: Mr. Campos has had multiple bowel movements overnight. OBJECTIVE: VITAL SIGNS: He is afebrile. Vital signs are stable. ABDOMEN: Soft, less tender, and nondistended. ASSESSMENT: Small-bowel obstruction versus ileus, resolved. Advanced to GI soft diet. I will sign off. He can go home at any time. Job ID: [id number]
[2019-11-22 11:32] VITALS: TEMP 97.5
--- NOTE | 2019-11-22 12:12 | PRG ---
DATE OF SERVICE: 11/22/2019 SUBJECTIVE: This morning, he is doing better, less short of breath, less cough, less pain. OBJECTIVE: VITAL SIGNS: Temperature 97, pulse 70, respirations 14, saturations 96% on room air, blood pressure . CHEST: No wheezing. No crackles. CARDIAC: Normal S1. No gallops. ABDOMEN: No masses. ASSESSMENT: 1. Postop thoracotomy, resolved. 2. Melanoma, status post segmentectomy. PLAN: Home any time. Follow up with Oncology. Job ID: [id number]
[2019-11-22 15:25] VITALS: BP 146/79
== END 2019-11-22 14:14 | disposition home or self-care (01) | DRG 164 ==
LOC: SURG A 11-16 06:11 → CCU 11-16 13:37 → SURG B 11-17 09:44
PROVIDERS: ADMIT Thoracic Surgery (Cardiothoracic Vascular Surgery); ATTEND Thoracic Surgery (Cardiothoracic Vascular Surgery)
PROC: 0BBF0ZZ Excision of Right Lower Lung Lobe, Open Approach (ICD-10-PCS; principal; 2019-11-16)
DX: C78.01 Secondary malignant neoplasm of right lung (principal); J98.11 Atelectasis; K56.7 Ileus, unspecified; Z20.828 Contact with and (suspected) exposure to other viral communicable diseases; E78.2 Mixed hyperlipidemia; I12.9 Hypertensive chronic kidney disease with stage 1 through stage 4 chronic kidney disease, or unspecified chronic kidney disease; N18.30 Chronic kidney disease, stage 3 unspecified; M10.9 Gout, unspecified; J44.9 Chronic obstructive pulmonary disease, unspecified; Z96.652 Presence of left artificial knee joint; Z86.006 Personal history of melanoma in-situ; Z79.899 Other long term (current) drug therapy; Z88.2 Allergy status to sulfonamides; Z90.49 Acquired absence of other specified parts of digestive tract; Z87.891 Personal history of nicotine dependence; Z79.51 Long term (current) use of inhaled steroids; K59.09 Other constipation
CPT/HCPCS: 36415; 70553; 71045; 74019; 74250; 80048; 85025; 86850; 86900; 86901; 88307; 88331; 88341; 88342; 88360; 93005; 93010; J0690; J1100; J1642; J1650; J1885; J2250; J2405; J2550; J2704; J3010; J3490; Q0163; Q9963

== ENCOUNTER 2020-03-09 12:02 | Outpatient (CLI) | payer MEDICARE ==
--- NOTE | 2020-03-09 12:30 | RAD ---
EXAM: Chest PA and lateral: HISTORY: Dyspnea. COMPARISON: 12/08/2019 FINDINGS: Heart: Normal cardiac silhouette Aorta: Slightly elongated Pulmonary vessels: Normal Costophrenic angles: Stable blunting of the right costophrenic angle Lungs: Chronic changes without masses or consolidation Pneumothorax: No pneumothorax Osseous structures: No osseous abnormalities IMPRESSION: No significant interval change. No acute cardiopulmonary process.
== END 2020-03-09 12:03 | disposition home or self-care (01) ==
LOC: BICRAD 12:02
PROVIDERS: ATTEND Internal Medicine Pulmonary Disease
DX: R06.00 Dyspnea, unspecified (principal)
CPT/HCPCS: 71046

== ENCOUNTER 2020-09-01 11:30 | Outpatient (CLI) | payer MEDICARE | END 2020-09-01 11:31 | disposition home or self-care (01) | LOC: MRI 11:30 | PROVIDERS: ATTEND Internal Medicine Medical Oncology | DX: C43.4 Malignant melanoma of scalp and neck (principal); C78.7 Secondary malignant neoplasm of liver and intrahepatic bile duct; I67.82 Cerebral ischemia | CPT/HCPCS: 70553 ==

== ENCOUNTER 2021-01-03 08:14 | Outpatient (CLI) | payer MEDICARE | END 2021-01-03 08:15 | disposition home or self-care (01) | LOC: PET 08:14 | PROVIDERS: ATTEND Internal Medicine Medical Oncology | DX: C43.4 Malignant melanoma of scalp and neck (principal); C78.7 Secondary malignant neoplasm of liver and intrahepatic bile duct; C78.6 Secondary malignant neoplasm of retroperitoneum and peritoneum; K52.9 Noninfective gastroenteritis and colitis, unspecified | CPT/HCPCS: 78816; A9552 ==

== ENCOUNTER 2021-12-08 08:00 | Outpatient (CLI) | payer MEDICARE | END 2021-12-08 08:01 | disposition home or self-care (01) | LOC: PET 08:00 | PROVIDERS: ATTEND Internal Medicine Medical Oncology | DX: C43.4 Malignant melanoma of scalp and neck (principal); G95.89 Other specified diseases of spinal cord | CPT/HCPCS: 78816; A9552 ==

== ENCOUNTER → 2023-01-22 | Outpatient (CLI) | payer MEDICARE | LOC: PET 08:00 | PROVIDERS: ATTEND Internal Medicine | DX: C43.4 Malignant melanoma of scalp and neck (principal) | CPT/HCPCS: 78816; A9552 ==